=== PATIENT | male | born 1985 | race Caucasian/White ===

== ENCOUNTER 2018-12-16 11:44 | Emergency (ER) | payer OTHER ==
[~2018-12-16] VITALS: Ht 177.8 cm; Wt 77.1 kg
[~2018-12-16 11:44] MED LIST: FLEXERIL PO; NAPROSYN250 MG PO; NORCO 5-325 TA1 EACH PO
[2018-12-16] MEDS ORDERED: PREDNISONE 20 M20 MG PO (13:17)
[2018-12-16] MEDS ORDERED: NORFLEX100 MG PO (13:17)
[2018-12-16 14:05] VITALS: BP 116/72
== END 2018-12-16 14:05 | disposition home or self-care (01) ==
LOC: ER 11:44
DX: S39.012A Strain of muscle, fascia and tendon of lower back, initial encounter (principal); X50.0XXA Overexertion from strenuous movement or load, initial encounter; Y93.B9 Activity, other involving muscle strengthening exercises; Y92.39 Other specified sports and athletic area as the place of occurrence of the external cause; Y99.8 Other external cause status

== ENCOUNTER 2018-12-19 07:47 | Emergency (ER) | payer OTHER ==
[~2018-12-19] VITALS: Ht 175.3 cm; Wt 78.5 kg
[~2018-12-19 07:47] MED LIST changes: +NORFLEX100 MG PO; +PREDNISONE 20 M20 MG PO
[2018-12-19 07:59] VITALS: BP 116/66
== END 2018-12-19 08:14 | disposition home or self-care (01) ==
LOC: ER 07:47
DX: S76.011A Strain of muscle, fascia and tendon of right hip, initial encounter (principal); X50.0XXA Overexertion from strenuous movement or load, initial encounter; X50.9XXA Other and unspecified overexertion or strenuous movements or postures, initial encounter; Y93.B3 Activity, free weights; Y92.39 Other specified sports and athletic area as the place of occurrence of the external cause; Y99.8 Other external cause status